=== PATIENT | female | born 1985 | race Caucasian/White ===

== ENCOUNTER 2017-01-20 18:05 | Emergency (ER) | payer OTHER ==
[~2017-01-20] VITALS: Ht 149.9 cm; Wt 76.8 kg
[~2017-01-20 18:05] MED LIST: AMOXICILLIN 50500 MG PO; CEPHALEXIN500 M1 PO; FLINTSTONES COM1 CT1 PO; GLUCOPHAGE500 MG/TAB PO; HUMULIN N PE100 U/ML; HUMULIN R 10100 U/ML SQ; NORCO 325 MG-51 TAB PO; NOVOLOG 100U100 U/M1 SC; NOVOLOG 100U100 U/M1 SQ; PERCOCET 325 MG1 TA2 PO; PRENATAL VITAMI1 TA5 PO; PRENATAL1 TA1 PO; SYNTHROID0.05 MG/TA PO; TOPROL XL200 MG PO; TYLENOL 325MG325 MG PO; VITAMIN C BUFF500 MG PO
[2017-01-20 18:10] VITALS: BP 171/100; TEMP 99.5
[2017-01-20] MEDS ORDERED: LANTUS SOLOS100 U/ML SQ (18:13)
[2017-01-20] MEDS ORDERED: PRENATAL1 TA7 PO (18:14)
[2017-01-20 18:45] LABS: BASO % 0.5 % (0.0-2.0); EOS # 0.1 (0.0-0.7); EOS % 0.6 % (0-4.0); GRAN # 4.9 (1.4-6.5); GRAN % 57.2 % (42.2-75.2); HEMATOCRIT 40.9 % (37.0-47.0); HEMOGLOBIN 13.9 g/dl (12.5-16.0); LYMPH # 3.2 (1.2-3.4); LYMPH % 37.4 % (20.0-51.0); MEAN CELL VOLUME 83 fl (80.0-100.0); MEAN CORPUSCULAR HEMOGLOBIN 28 pg (27.0-31.0); MEAN CORPUSCULAR HGB CONC 34 g/dl (33.0-37.0); MEAN PLATELET VOLUME 12.3 fl (7.4-10.4); MONO # 0.4 (0.1-0.6); MONO % 4.1 % (1.7-9.3); PLATELET COUNT 233 K/mm3 (130-400); RED BLOOD COUNT 4.92 M/mm3 (4.10-5.30); REDCELL DISTRIBUTION WIDTH-CV 12.7 % (11.5-14.5); WHITE BLOOD COUNT 8.6 K/mm3 (4.8-10.8)
[2017-01-20 19:44] LABS: ADJUSTED CALCIUM 8.7 mg/dL (8.4-10.2); ALBUMIN 4.3 gm/dL (3.5-5.0); BILIRUBIN,TOTAL 0.6 mg/dL (0.0-1.0); CALCIUM 8.9 mg/dL (8.4-10.2); CREATININE, serum 0.53 mg/dL (0.52-1.25); POTASSIUM 4.1 mmol/L (3.4-5.0); TOTAL PROTEIN 7.5 gm/dL (6.4-8.2)
[2017-01-20 21:29] VITALS: PULSE 106
== END 2017-01-20 21:36 | disposition home or self-care (01) ==
LOC: COL.ER 18:05
PROVIDERS: Nurse Practitioner
DX: R10.2 Pelvic and perineal pain (principal); N93.9 Abnormal uterine and vaginal bleeding, unspecified; M54.5 Low back pain; E11.65 Type 2 diabetes mellitus with hyperglycemia; E06.3 Autoimmune thyroiditis; Z79.4 Long term (current) use of insulin; Z32.01 Encounter for pregnancy test, result positive
CPT/HCPCS: J7030

== ENCOUNTER 2020-02-21 19:08 | Emergency (ER) | payer OTHER ==
[~2020-02-21] VITALS: Ht 149.9 cm; Wt 79.1 kg
[~2020-02-21 19:08] MED LIST changes: +LANTUS SOLOS100 U/ML SQ; +PRENATAL1 TA7 PO
[2020-02-21 19:19] VITALS: BP 148/94; TEMP 98.4
[2020-02-21 19:52] LABS: BASO % 0.3 % (0.0-2.0); EOS # 0.1 (0.0-0.7); EOS % 1.5 % (0-4.0); GRAN # 3.7 (1.4-6.5); GRAN % 51.9 % (42.2-75.2); HEMATOCRIT 39.3 % (37.0-47.0); HEMOGLOBIN 13.3 g/dl (12.5-16.0); LYMPH # 2.9 (1.2-3.4); LYMPH % 40.4 % (20.0-51.0); MEAN CELL VOLUME 85 fl (80.0-100.0); MEAN CORPUSCULAR HEMOGLOBIN 29 pg (27.0-31.0); MEAN CORPUSCULAR HGB CONC 34 g/dl (33.0-37.0); MEAN PLATELET VOLUME 11.6 fl (7.4-10.4); MONO # 0.4 (0.1-0.6); MONO % 5.8 % (1.7-9.3); PLATELET COUNT 235 K/mm3 (130-400); REDCELL DISTRIBUTION WIDTH-CV 12.9 % (11.5-14.5)
[2020-02-21 19:56] LABS: COLLECTION METHOD CLEAN CATCH
[2020-02-21 20:08] LABS: PH 5 (5-8); SQUAMOUS EPITHELIAL 0-2 /hpf; URINE APPEARANCE Clear; URINE BACTERIA None Seen /hpf; URINE BILIRUBIN Negative (NEGATIVE); URINE BLOOD 1+ (NEGATIVE); URINE COLOR Straw; URINE GLUCOSE 3+ (NEGATIVE); URINE KETONE 1+ (NEGATIVE); URINE LEUKOCYTE ESTERASE Negative (NEGATIVE); URINE NITRATE Negative (NEGATIVE); URINE PROTEIN(semi-quant) Negative (NEGATIVE); URINE RBC 0-2 /hpf; URINE UROBILINOGEN Negative (NEGATIVE)
[2020-02-21 20:14] LABS: ALBUMIN 3.8 gm/dL (3.5-5.0); BILIRUBIN,TOTAL 0.3 mg/dL (0.0-1.0); CALCIUM 8.9 mg/dL (8.4-10.2); CREATININE, serum 0.35 (0.52-1.25); POTASSIUM 3.9 mmol/L (3.4-5.0); TOTAL PROTEIN 7.3 gm/dL (6.4-8.2)
[2020-02-21 21:50] VITALS: PULSE 71
== END 2020-02-21 21:42 | disposition home or self-care (01) ==
LOC: COL.ER 19:08
PROVIDERS: Nurse Practitioner
DX: O20.0 Threatened abortion (principal); O24.911 Unspecified diabetes mellitus in pregnancy, first trimester; O99.281 Endocrine, nutritional and metabolic diseases complicating pregnancy, first trimester; E06.3 Autoimmune thyroiditis; Z3A.01 Less than 8 weeks gestation of pregnancy; Z79.4 Long term (current) use of insulin

== ENCOUNTER 2020-03-16 01:26 | Emergency (ER) | payer OTHER ==
[~2020-03-16] VITALS: Ht 147.3 cm; Wt 79.1 kg
[2020-03-16 01:31] VITALS: BP 148/93; TEMP 98.7
[2020-03-16 02:16] LABS: COLLECTION METHOD CLEAN CATCH
[2020-03-16 02:24] LABS: PH 5 (5-8); URINE APPEARANCE Hazy; URINE BACTERIA None Seen /hpf; URINE BILIRUBIN Negative (NEGATIVE); URINE BLOOD 3+ (NEGATIVE); URINE COLOR Straw; URINE GLUCOSE 3+ (NEGATIVE); URINE KETONE Trace (NEGATIVE); URINE LEUKOCYTE ESTERASE Negative (NEGATIVE); URINE NITRATE Negative (NEGATIVE); URINE PROTEIN(semi-quant) 1+ (NEGATIVE); URINE RBC 0-2 /hpf; URINE UROBILINOGEN Negative (NEGATIVE)
[2020-03-16] MEDS ORDERED: MACROBID 1100 MG/CAP PO (02:44)
[2020-03-16 03:15] VITALS: PULSE 90
== END 2020-03-16 03:16 | disposition home or self-care (01) ==
LOC: COL.ER 01:26
PROVIDERS: Emergency Medicine
DX: O20.0 Threatened abortion (principal); O24.111 Pre-existing type 2 diabetes mellitus, in pregnancy, first trimester; O23.91 Unspecified genitourinary tract infection in pregnancy, first trimester; E11.65 Type 2 diabetes mellitus with hyperglycemia; Z3A.09 9 weeks gestation of pregnancy; Z79.4 Long term (current) use of insulin

== ENCOUNTER 2020-08-27 03:27 | Outpatient (CLI) | payer OTHER, MEDICAID ==
[2020-08-27] VITALS (7 sets, daily range): BP systolic 140–178; BP diastolic 79–97; PULSE 73–87; TEMP 98.1–99.3
[~2020-08-27 03:27] MED LIST changes: +MACROBID 1100 MG/CAP PO
[2020-08-27 04:38] LABS: BASO % 0.3 % (0.0-2.0); EOS # 0.1 (0.0-0.7); EOS % 0.9 % (0-4.0); GRAN # 3.6 (1.4-6.5); GRAN % 55.2 % (42.2-75.2); HEMATOCRIT 38.1 % (37.0-47.0); LYMPH # 2.5 (1.2-3.4); LYMPH % 37.3 % (20.0-51.0); MEAN CELL VOLUME 84 fl (80.0-100.0); MEAN CORPUSCULAR HEMOGLOBIN 29 pg (27.0-31.0); MEAN CORPUSCULAR HGB CONC 34 g/dl (33.0-37.0); MEAN PLATELET VOLUME 11.4 fl (7.4-10.4); MONO # 0.4 (0.1-0.6); MONO % 6.1 % (1.7-9.3); PLATELET COUNT 288 K/mm3 (130-400); RED BLOOD COUNT 4.53 M/mm3 (4.10-5.30); REDCELL DISTRIBUTION WIDTH-CV 13.2 % (11.5-14.5)
[2020-08-27 04:47] LABS: ALBUMIN 3.6 gm/dL (3.5-5.0); BILIRUBIN,TOTAL 0.3 mg/dL (0.0-1.0); CALCIUM 9.5 mg/dL (8.4-10.2); CREATININE, serum 0.47 (0.52-1.25); POTASSIUM 3.5 mmol/L (3.4-5.0); TOTAL PROTEIN 6.9 gm/dL (6.4-8.2)
[2020-08-27 04:54] LABS: COLLECTION METHOD CLEAN CATCH
[2020-08-27 05:14] LABS: MUCOUS Present /lpf; PH 5 (5-8); URINE APPEARANCE Hazy; URINE BACTERIA Rare /hpf; URINE BILIRUBIN Negative (NEGATIVE); URINE BLOOD Negative (NEGATIVE); URINE COLOR Yellow; URINE GLUCOSE 3+ (NEGATIVE); URINE KETONE 2+ (NEGATIVE); URINE LEUKOCYTE ESTERASE 2+ (NEGATIVE); URINE NITRATE Negative (NEGATIVE); URINE PROTEIN(semi-quant) 2+ (NEGATIVE); URINE UROBILINOGEN Negative (NEGATIVE); URINE WBC 20-50 /hpf
[2020-08-27] MEDS ORDERED: TYLENOL 500MG500 MG PO (05:57)
[2020-08-27] MEDS ORDERED: ASPIRIN 81M81 MG/TA2 PO (05:58)
[2020-08-27] MEDS ORDERED: BENADRYL25 M2 PO (05:58)
[2020-08-27] MEDS ORDERED: TUMS500 MG PO (05:59)
[2020-08-27] MEDS ORDERED: NOVOLOG 100U100 U/M1 SQ (06:00)
[2020-08-27] MEDS ORDERED: NOVOLOG FLEX100 U/ML SQ (06:01)
[2020-08-27] MEDS ORDERED: SYNTHROID0.05 MG/TA PO (06:01)
[2020-08-27] MEDS ORDERED: COMPAZINE 5MG TA5 MG PO (06:02)
[2020-08-27] MEDS ORDERED: GLUCOPHAGE500 MG/TAB PO (06:02)
[2020-08-27] MEDS ORDERED: PRENATAL PO (06:03)
== END 2020-08-27 07:20 ==
LOC: LDRO 03:27
PROVIDERS: Student in an Organized Health Care Education/Training Program
DX: O13.3 Gestational [pregnancy-induced] hypertension without significant proteinuria, third trimester (principal); O26.893 Other specified pregnancy related conditions, third trimester; R11.0 Nausea; R51.9 Headache, unspecified; R10.9 Unspecified abdominal pain; Z3A.32 32 weeks gestation of pregnancy; Z87.59 Personal history of other complications of pregnancy, childbirth and the puerperium
CPT/HCPCS: J0360; J2405; J7030

== ENCOUNTER 2022-06-14 22:24 | Emergency (ER) | payer OTHER, MEDICAID ==
[~2022-06-14] VITALS: Ht 147.3 cm; Wt 70.5 kg
[~2022-06-14 22:24] MED LIST changes: +ASPIRIN 81M81 MG/TA2 PO; +BENADRYL25 M2 PO; +COMPAZINE 5MG TA5 MG PO; +NOVOLOG FLEX100 U/ML SQ; +PRENATAL PO; +TUMS500 MG PO; +TYLENOL 500MG500 MG PO
[2022-06-14 22:33] VITALS: TEMP 98.8
[2022-06-14 22:55] LABS: COLLECTION METHOD CLEAN CATCH
[2022-06-14 23:02] LABS: URINE BACTERIA None Seen /hpf (NONE SEEN); URINE RBC 0-2 /hpf (0-2)
[2022-06-14 23:03] LABS: URINE APPEARANCE Clear (CLEAR/HAZY); URINE BLOOD TRACE-INTACT (NEGATIVE); URINE COLOR Yellow (YELLOW); URINE GLUCOSE 3+ (NEGATIVE); URINE KETONE 1+ (NEGATIVE); URINE NITRATE Negative (NEGATIVE); URINE PROTEIN(semi-quant) Negative (NEGATIVE); URINE UROBILINOGEN 0.2 E.U/dL (0.2-1.0)
[2022-06-14 23:07] LABS: BASO # 0.1 K/mm3 (0.0-0.2); BASO % 0.6 % (0.0-2.0); EOS # 0.5 K/mm3 (0.0-0.7); EOS % 5.7 % (0.0-4.0); GRAN % 44.4 % (42.2-75.2); HEMATOCRIT 37.6 % (37.0-47.0); HEMOGLOBIN 13.4 g/dl (12.5-16.0); LYMPH # 3.8 K/mm3 (1.2-3.4); LYMPH % 42.6 % (20.0-51.0); MEAN CELL VOLUME 83 fl (80.0-100.0); MEAN CORPUSCULAR HEMOGLOBIN 30 pg (27-31); MEAN CORPUSCULAR HGB CONC 36 g/dl (33.0-37.0); MEAN PLATELET VOLUME 11.2 fl (7.4-10.4); MONO # 0.6 K/mm3 (0.1-0.6); MONO % 6.5 % (1.7-9.3); PLATELET COUNT 319 K/mm3 (130-400); RED BLOOD COUNT 4.54 M/mm3 (4.10-5.30); REDCELL DISTRIBUTION WIDTH-CV 12.5 % (11.5-14.5)
[2022-06-14 23:24] LABS: ALBUMIN 3.2 gm/dL (3.5-5.0); BILIRUBIN,TOTAL 0.1 mg/dL (0.2-1.2); CALCIUM 9.4 mg/dL (8.4-10.2); CREATININE, serum 1.02 mg/dL (0.57-1.11); TOTAL PROTEIN 7.4 gm/dL (6.2-8.1)
[2022-06-15 01:38] VITALS: BP 162/98; PULSE 92
== END 2022-06-15 01:38 | disposition home or self-care (01) ==
LOC: COL.ER 22:24
PROVIDERS: Nurse Practitioner Primary Care
DX: R10.32 Left lower quadrant pain (principal); Z32.02 Encounter for pregnancy test, result negative
CPT/HCPCS: J1885; J2405; J7030; Q9967